=== PATIENT | male | born 1985 | race Caucasian/White ===

== ENCOUNTER 2016-09-15 16:44 | Outpatient (CLI) | payer SELFPAY ==
--- NOTE | 2016-09-15 18:28 | Diagnostic Imaging Report ---
[facility] [address] [facility].[address] [id number] Report Submission Date: Sep 15, 2016 5:10:38 PM [employer]Y [employer] INS[employer] Patient Study Name: HEBER SELLERS Date: Sep 15, 2016 4:54:13 PM [employer] Modality Type: CR Gender: M Description: SKULL : 87 Institution: [facility] Physician: SHITAL DAWN Skull total 3 views Clinical history: Trauma Sinuses, mastoid air cells are normal. Skull is normal without fractures or other appreciable abnormalities. Sella turcica and sphenoid sinuses are normal. Impression: Normal skull Electronically signed on Sep 15, 2016 5:10:38 PM [employer]Y [employer] INSPECTOR by: Abdias HERNÁNDEZ
== END 2016-09-15 16:49 | disposition home or self-care (01) ==
LOC: RAD 16:44
PROVIDERS: ATTEND Family Medicine
DX: S09.90XA Unspecified injury of head, initial encounter (principal); X58.XXXA Exposure to other specified factors, initial encounter; Y93.9 Activity, unspecified; Y92.9 Unspecified place or not applicable; Y99.9 Unspecified external cause status
CPT/HCPCS: 70250